=== PATIENT | female | born 1955 | race Caucasian/White ===

== ENCOUNTER 2023-09-11 14:54 | Outpatient (CLI) | payer MEDICARE, OTHER ==
--- NOTE | 2023-09-11 16:02 | XRAY Report ---
PROCEDURE: Hips w/Pelvis 2-3V BL INDICATIONS: RIGHT HIP PAIN TECHNIQUE: 3 view(s) of the hip were acquired. COMPARISON: None FINDINGS: Bones: No fractures or dislocations. No suspicious bony lesions. The visualized pelvic ring appear s intact. Mild to moderate bilateral degenerative hip joint space narrowing. No erosions. Soft tissues: No suspicious soft tissue calcifications or masses. IMPRESSION: Arthritic changes within the hips bilaterally. Reviewed by: Hayley Alfaro MD on 09/11/2023 4:01 PM [facility] Approved by: Hayley Alfaro MD on 09/11/2023 4:01 PM PST Station ID: [id number]
--- NOTE | 2023-09-11 16:03 | XRAY Report ---
PROCEDURE: Lumbar Spine 2-3V INDICATIONS: LOW BACK PAIN TECHNIQUE: 3 views of the lumbar spine were acquired. COMPARISON: None. FINDINGS: Bones: 5 [id number] vertebrae are present. There is trace retrolisthesis of L2 on L3. Multilev el disc and foraminal narrowing are present most severe at L5-S1. Multilevel anterior osteophytes. No vertebral body compression fractures. No suspicious bony lesions. Soft tissues: Overlying bowel gas pattern is normal. No suspicious soft tissue calcifications. IMPRESSION: Disc and foraminal narrowing most notable at L5-S1. Reviewed by: Hayley Alfaro MD on 09/11/2023 4:01 PM PST Approved by: Hayley Alfaro MD on 09/11/2023 4:01 PM PST Station ID: [id number]
== END 2023-09-11 23:59 | disposition home or self-care (01) ==
LOC: DI.N 14:54
PROVIDERS: ATTEND Specialist
DX: M43.16 Spondylolisthesis, lumbar region (principal); M51.37 Other intervertebral disc degeneration, lumbosacral region; M48.07 Spinal stenosis, lumbosacral region; M16.0 Bilateral primary osteoarthritis of hip

== ENCOUNTER 2023-12-01 12:45 | Outpatient (CLI) | payer MEDICARE, OTHER ==
--- NOTE | 2023-12-02 10:20 | Mammography Report ---
BILATERAL DIGITAL SCREENING MAMMOGRAM 3D/2D: 12/01/2023 CLINICAL: Routine screening. Comparison is made to exams dated: 09/10/2016 mammogram and 01/26/2014 mammogram - [facility]. There are scattered areas of fibroglandular density in both breasts (category b / 25%-50% glandular t issue). No significant masses, calcifications, or other findings are seen in either breast. There has been no significant interval change. IMPRESSION: NEGATIVE There is no mammographic evidence of malignancy. A 1 year screening mammogram is recommended. Based on the Tyrer Cuzick model (a risk assessment model) the patient's lifetime risk is 6.8% and her 10 year risk is 3.4%. According to the ACR, ACS, and NCCN guidelines, an annual breast MRI exam kalli g with mammogram is recommended if the patient's lifetime risk is 20% or greater. This exam was interpreted at Station ID: [id number]. NOTE: For mammograms, a report in lay terms will be sent to the patient. Approximately 15% of breast malignancies will not be visualized mammographically. In the management of a palpable breast mass, a negative mammogram must not discourage biopsy of a clinically suspicious lesion. Electronically Signed By: Guru bunn/fox:12/01/2023 17:05:23 ACR BI-RADS Category 1: Negative 3341F PARENCHYMAL PATTERN: (A) - The breast(s) demonstrate(s) scattered fibroglandular densities. BI-RADS CATEGORY: (1) - 1 RECOMMENDATION: (ANNUAL) - Recommend routine annual screening mammography. [id number] 1 year screening LATERALITY: (B)
== END 2023-12-01 12:46 | disposition home or self-care (01) ==
LOC: DI.N 12:45
DX: Z12.31 Encounter for screening mammogram for malignant neoplasm of breast (principal); R92.323 Mammographic fibroglandular density, bilateral breasts

== ENCOUNTER 2024-01-15 12:26 | Outpatient (CLI) | payer MEDICARE, OTHER ==
--- NOTE | 2024-01-15 15:38 | XRAY Report ---
PROCEDURE: Foot 3+V RT INDICATIONS: FOOT JOINT PAIN, RIGHT TECHNIQUE: 3 views of the foot were acquired. COMPARISON: None. FINDINGS: Bones: No fractures or dislocations. No suspicious bony lesions. Soft tissues: No tibiotalar joint effusion. Achilles tendon appears normal. IMPRESSION: No acute bony abnormality. Reviewed by: Yasemin Hernandez MD, PhD on 01/15/2024 3:37 PM PDT Approved by: Yasemin Hernandez MD, PhD on 01/15/2024 3:37 PM PDT Station ID: [id number]
--- NOTE | 2024-01-15 15:40 | XRAY Report ---
PROCEDURE: Foot 3+V LT INDICATIONS: FOOT PAIN LEFT TECHNIQUE: 3 views of the foot were acquired. COMPARISON: None. FINDINGS: Bones: No fractures or dislocations. No suspicious bony lesions. Tiny retrocalcaneal and small olivier ntar calcaneal enthesophytes. Soft tissues: No tibiotalar joint effusion. Achilles tendon appears normal. IMPRESSION: No acute bony abnormality. Calcaneal enthesopathy. Reviewed by: Yasemin Hernandez MD, PhD on 01/15/2024 3:39 PM PDT Approved by: Yasemin Hernandez MD, PhD on 01/15/2024 3:39 PM PDT Station ID: [id number]
== END 2024-01-15 12:27 | disposition home or self-care (01) ==
LOC: DI.N 12:26
PROVIDERS: ATTEND Family Medicine
DX: M79.671 Pain in right foot (principal); M77.32 Calcaneal spur, left foot

== ENCOUNTER 2024-01-27 15:02 | Outpatient (CLI) | payer MEDICARE, OTHER ==
--- NOTE | 2024-01-28 09:19 | DEXA Report ---
PROCEDURE: Dexa Spine and/or Hip INDICATIONS: POST MENOPAUSAL TECHNIQUE: Dual energy x-ray absorptiometry (DXA) was performed on a NearDesk System. Regions measur ed are the AP Spine, femoral neck, and if needed forearm. COMPARISON: Not available FINDINGS: Lumbar Spine: Bone Mineral Density: 1.400 g/cm/cm,T score: 1.8. Left Femoral Neck: Bone Mineral Density: 0.943 g/cm/cm, T score: -0.7. Left Hip: Bone Mineral Density: 0.993 g/cm/cm,T score: -0.1. (T score greater or equal to -1.0: NORMAL) (T score from -1.1 to -2.4: OSTEOPENIA) (T score less than or equal to -2.5 to: OSTEOPOROSIS) Impression: By WHO criteria, this patient has normal bone mineral density. Patients with diagnosis of osteoporosis or osteopenia should have regular bone mineral density assess ment. For those eligible for Medicare, routine testing is allowed once every 2 years. Testing frequ ency can be increased for patients who have rapidly progressing disease or for those who are receivin g medical therapy to restore bone mass. Reviewed by: Juan Pablo Sepulveda MD on 01/28/2024 9:17 AM PDT Approved by: Juan Pablo Sepulveda MD on 01/28/2024 9:17 AM PDT Station ID: [id number]
== END 2024-01-27 15:03 | disposition home or self-care (01) ==
LOC: DI 15:02
PROVIDERS: ATTEND Family Medicine
DX: Z78.0 Asymptomatic menopausal state (principal)